=== PATIENT | male | born 2005 | race Caucasian/White ===

== ENCOUNTER 2024-10-07 19:02 | Emergency (ER) | payer SELFPAY ==
[~2024-10-07] VITALS: Ht 162.6 cm; Wt 63.8 kg
[2024-10-07 19:41] VITALS: BP 130/102; PULSE 117; RESP 12; O2SAT 96
[2024-10-07] MEDS ORDERED: CEPH500C PO (23:07)
--- NOTE | 2024-10-07 23:07 | ED.PDOC ---
History of Present Illness(SKN HPI Comments PT REPORTS NEW TATTOO TO RIGHT WRIST/FOREARM X 2 DAYS AGO, STARTED SWELLING ASSOCIATED WITH REDNESS AND DISCOMFORT. 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 10/07/24 Information Source: Patient Mode of Arrival: Ambulatory Constitutional: denies: chills, diaphoresis, fatigue, fever, malaise, sweats, weakness, others EENTM: denies: blurred vision, double vision, ear bleeding, ear discharge, ear drainage, ear pain, ear ringing, eye pain, eye redness, hearing loss, mouth pain, mouth swelling, nasal discharge, nose bleeding, nose congestion, nose pain, photophobia, tearing, throat pain, throat swelling, voice changes, others Respiratory: denies: cough, hemoptysis, orthopnea, SOB at rest, shortness of breath, SOB with excertion, stridor, wheezing, others Cardiovascular: denies: chest pain, dizzy spells, diaphoresis, Dyspnea on exertion, edema, irregular heart beat, left arm pain, lightheadedness, palpitations, PND, syncope, others Gastrointestinal: denies: abdomen distended, abdominal pain, blood streaked bowels, constipated, diarrhea, dysphagia, difficulty swallowing, hematemesis, melena, nausea, poor appetite, poor fluid intake, rectal bleeding, rectal pain, vomiting, others Genitourinary: denies: burning, dysuria, flank pain, frequency, hematuria, incontinence, penile discharge, penile sore, pain, testicle pain, testicle swelling, urgency, others Neurological: denies: dizziness, fainting, headache, left sided numbness, left sided weakness, numbness, paresthesia, pre-existing deficit, right sided numbness, right sided weakness, seizure, speech problems, tingling, tremors, weakness, others Musculoskeletal: denies: back pain, gout, joint pain, joint swelling, muscle pain, muscle stiffness, neck pain, others Integumetry: reports: rash (Right forearm over tattoo); denies: bruises, change in color, change in hair/nails, dryness, laceration, lesions, lumps, wounds, others Hematologic/Lymphatic: denies: anemia, blood clots, easy bleeding, easy b ruising, swollen glands, others Endocrine: denies: excessive hunger, excessive sweating, excessive thirst, excessive urination, flushing, intolerance to cold, intolerance to heat, unexplained weight gain, unexplained weight loss, others Psychiatric: denies: anxiety, bipolar disorder, depression, hopeless, panic disorder, schizophrenia, sleepless, suicidal, others Physical Exam General Appearance: No Apparent Distress, Normal HEENT: Pharynx Normal Neck: Full Range of Motion, Non-Tender Respiratory: Lungs Clear, No Respiratory Distress, Normal Breath Sounds Cardiovascular: No Murmur, Normal Peripheral Pulses, Regular Rate/Rhythm Breast Exam: Deferred Gastrointestinal: No Organomegaly, Non Tender, Soft Genitalia: Deferred Pelvic: Deferred Rectal: Deferred Extremities: Normal capillary refill, Normal inspection, Normal range of motion Musculoskeletal : Apperance: Normal Neurologic: Alert, 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 To touch), Warm Lymphatic: No Adenopathy Was a procedure done? 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 Script Keflex consider possible cellulitis, advised patient only to fill antibiotics and start mid antibiotics as prescribed if rash does not get better in 24 hours with the cortisone and prednisone. Follow up with his PCP in 2-3 days for re-evaluation. Take medications as prescribed side effects discussed. ER return precautions given patient indicates understanding and agrees with discharge plan of care. Time of 1ST Reevaluation: 23:07 Reevaluation 1ST: Improved Patient Education/Counseling: Diagnosis, Treatment, Prognosis, Need For Follow Up Family Education/Counseling: No Family Present Departure 1 Departure Time of Disposition: 23:07 Impression: Primary Impression: Cellulitis Qualified Codes: L03.113 - Cellulitis of right upper limb Disposition: 01 HOME / SELF CARE / HOMELESS Condition: Stable e-Prescriptions Cephalexin Monohydrate (Cephalexin) 500 Mg Cap 500 MG PO TID for 5 Days, #15 MG Prov: SAMREEN MONTGOMERY 10/07/24 Discharged With: Self Critical Care Note Critical Care Time?: No Stability Stability form required: SAMREEN Garcia Oct 07, 2024 23:07
[2024-10-07] MEDS: predniSONE 20 MG TAB PO ONE (23:22)
== END 2024-10-07 23:25 | disposition home or self-care (01) ==
LOC: ER 19:02
DX: L03.113 Cellulitis of right upper limb (principal); R21 Rash and other nonspecific skin eruption
CPT/HCPCS: 99283; J7512